=== PATIENT | male | born 1985 | race African-American/Black ===

== ENCOUNTER 2019-01-25 12:06 | Inpatient (IN) | payer OTHER ==
[2019-01-25 14:27] VITALS: BMI 24.9
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
[2019-01-25] MEDS ORDERED: MAG HYDROX/AL HYDROX/SIMETH 30 ML UNIT-DOSE CUP PO PRN (17:44)
[2019-01-25] MEDS ORDERED: ACETAMINOPHEN 325 MG TABLET (FP) PO PRN (17:44)
[2019-01-25] MEDS ORDERED: NICOTINE POLACRILEX 2 MG GUM BUC PRN (17:44)
[2019-01-25] MEDS ORDERED: MENTHOL/PHENOL 1 EACH UD MM PRN (17:44)
[2019-01-25] MEDS ORDERED: MAGNESIUM CITRATE 300 ML BOTTLE PO PRN (17:44)
[2019-01-25] MEDS ORDERED: hydrOXYzine PAMOATE 25 MG CAPSULE (FP) PO PRN (17:44)
[2019-01-25] MEDS ORDERED: chlordiazePOXIDE HCL 25 MG CAPSULE PO PRN (17:44)
[2019-01-25] MEDS ORDERED: BISMUTH SUBSALICYLATE 524 MG/30 ML UD PO PRN (17:44)
[2019-01-25] MEDS ORDERED: MAGNESIUM HYDROX 2400MG/30ML ORAL SUSPENSION 30 ML CUP PO PRN (17:44)
[2019-01-25] MEDS ORDERED: IBUPROFEN 400 MG TABLET (FP) PO PRN (17:44)
[2019-01-25] MEDS ORDERED: ONDANSETRON *ODT* 4 MG TABLET SL PRN (17:44)
[2019-01-25] MEDS ORDERED: guaiFENesin 200 MG/10 ML 10 ML UNIT-DOSE CUPS PO PRN (17:44)
[2019-01-25] MEDS ORDERED: BACITRACIN 0.9 GM PACKET TP ONE (18:00)
[2019-01-25] MEDS: THIAMINE HCL 100 MG TABLET (FP) PO SCH (22:08)
[2019-01-25] MEDS: chlordiazePOXIDE HCL 25 MG CAPSULE PO SCH (22:08)
[2019-01-25] MEDS: MELATONIN 5 MG TABLETS PO PRN (22:09)
[2019-01-26] MEDS: chlordiazePOXIDE HCL 25 MG CAPSULE PO SCH ×4 (05:21→22:02)
[2019-01-26] MEDS: PRENATAL VITAMINS W/ FOLIC ACID TABLET (FP) PO SCH (10:18)
[2019-01-26] MEDS: NICOTINE 14 MG/24 HOURS TOPICAL PATCH TD SCH (10:20)
--- NOTE | 2019-01-26 10:45 | PN ---
S CIWA - CIWA Score Nausea/Vomitin-No Nausea/No Vomiting Muscle Tremors: 2 Anxiety: 2 Agitation: 2 Paroxysmal Sweats: 1-Minimal Palms Moist Orientation: 2-Disoriented Date<2 days Tacttile Disturbances: 0-None Auditory Disturbances: 0-None Visual Disturbances: 0-None Headache: 1-Very Mild CIWA-Ar Total Score: 10 BHS Progress Note (SOAP) Subjective: tremor sweating low energy headaches Objective: 01/26/19 10:45 Vital Signs Temperature 96.8 F L 01/26/19 09:42 Pulse Rate 59 L 01/26/19 09:42 Respiratory Rate 16 01/26/19 09:42 Blood Pressure 120/76 01/26/19 09:42 O2 Sat by Pulse Oximetry (%) lab pending Assessment: 01/26/19 10:46 alcohol withdrawal sx Plan: continue detox
--- NOTE | 2019-01-26 11:29 | CONSULT ---
[facility] Psychiatric Consult - Data Date of interview: 01/26/19 Admission source: [facility] Identifying data: Psychiatry team (Dr Shah + medical students + counselor Percy ) approached the patient at bedside for psychiatric evaluation. Three visits. Patient remains uncooperative after three visits. Interview cannot be done at this time. Will re-consult if request renewed.
[2019-01-26 12:53] LABS: ALBUMIN 3.4 g/dl (3.4-5.0); ALK PHOS 82 U/L (45-117); ANION GAP 7 MMOL/L (8-16); BILIRUBIN,TOTAL 0.6 mg/dL (0.2-1); BLOOD UREA NITROGEN 11 mg/dL (7-18); CALCIUM 8.7 mg/dL (8.5-10.1); CHLORIDE 104 mmol/L (98-107); CO2 30 mmol/L (21-32); CREATININE 1.1 mg/dL (0.55-1.3); GLUCOSE,RANDOM 74 mg/dL (74-106); POTASSIUM 3.4 mmol/L (3.5-5.1); SGOT/AST 31 U/L (15-37); SGPT/ALT 31 U/L (13-61); SODIUM 141 mmol/L (136-145); TOT PROT 6.3 g/dl (6.4-8.2)
[2019-01-26 13:08] LABS: HEMATOCRIT 38.1 % (35.4-49); HEMOGLOBIN 13.1 GM/dL (11.7-16.9); MCH 33.6 pg (25.7-33.7); MCHC 34.3 g/dl (32.0-35.9); MEAN CELL VOLUME 97.9 fl (80-96); MEAN PLT VOLUME 7.1 fl (7.5-11.1); PLATELET COUNT 174 K/MM3 (134-434); RBC 3.89 M/mm3 (4.00-5.60); RDW 14.2 % (11.9-15.9); WHITE BLOOD COUNT 4.9 K/mm3 (4.0-10.0)
--- NOTE | 2019-01-26 13:37 | EKG ---
Test Reason : Blood Pressure : / mmHG Vent. Rate : 079 BPM Atrial Rate : 079 BPM P-R Int : 154 ms QRS Dur : 080 ms QT Int : 368 ms P-R-T Axes : 059 063 053 degrees QTc Int : 421 ms NORMAL SINUS RHYTHM NORMAL ECG NO PREVIOUS ECGS AVAILABLE Confirmed by MD TEODORO, JAGRUTI ([id number]) on 01/26/2019 1:37:14 PM Referred By: Confirmed By:JAGRUTI VALERIO MD
[2019-01-26] MEDS: ACETAMINOPHEN 325 MG TABLET (FP) PO PRN (17:39)
[2019-01-26 18:00] LABS: URINE APPEARANCE TURBID; URINE BILIRUBIN NEGATIVE (<2.0 mg/dL); URINE COLOR AMBER; URINE GLUCOSE (UA) NEGATIVE (NEGATIVE); URINE KETONE NEGATIVE (NEGATIVE); URINE LEUK ESTERASE NEGATIVE (NEGATIVE); URINE NITRITE NEGATIVE (NEGATIVE); URINE PROTEIN NEGATIVE (NEGATIVE); URINE UROBILINOGEN NEGATIVE mg/dL (0.2-1.0)
[2019-01-26] MEDS: BACLOFEN 10 MG TABLET (FP) PO PRN (22:02)
[2019-01-26] MEDS: MELATONIN 5 MG TABLETS PO PRN (22:02)
[2019-01-26] MEDS: THIAMINE HCL 100 MG TABLET (FP) PO SCH (22:02)
[2019-01-27] MEDS: chlordiazePOXIDE HCL 25 MG CAPSULE PO SCH ×3 (06:02→17:52)
--- NOTE | 2019-01-27 10:28 | PN ---
S CIWA - CIWA Score Nausea/Vomitin-No Nausea/No Vomiting Muscle Tremors: 2 Anxiety: 1-Mildly Anxious Agitation: 2 Paroxysmal Sweats: 1-Minimal Palms Moist Orientation: 1-Uncertain about Date Tacttile Disturbances: 0-None Auditory Disturbances: 0-None Visual Disturbances: 0-None Headache: 0-None Present CIWA-Ar Total Score: 7 BHS Progress Note (SOAP) Subjective: tremor sweating irritable anxiety Objective: 01/27/19 10:30 Vital Signs Temperature 96.7 F L 01/27/19 09:01 Pulse Rate 61 01/27/19 09:01 Respiratory Rate 18 01/27/19 09:01 Blood Pressure 125/82 01/27/19 09:01 O2 Sat by Pulse Oximetry (%) Laboratory Last Values WBC 4.9 K/mm3 (4.0-10.0) 01/26/19 07:00 RBC 3.89 M/mm3 (4.00-5.60) L 01/26/19 07:00 Hgb 13.1 GM/dL (11.7-16.9) 01/26/19 07:00 Hct 38.1 % (35.4-49) 01/26/19 07:00 MCV 97.9 fl (80-96) H 01/26/19 07:00 MCH 33.6 pg (25.7-33.7) 01/26/19 07:00 MCHC 34.3 g/dl (32.0-35.9) 01/26/19 07:00 RDW 14.2 % (11.9-15.9) 01/26/19 07:00 Plt Count 174 K/MM3 (134-434) 01/26/19 07:00 MPV 7.1 fl (7.5-11.1) L 01/26/19 07:00 Sodium 141 mmol/L (136-145) 01/26/19 07:00 Potassium 3.4 mmol/L (3.5-5.1) L 01/26/19 07:00 Chloride 104 mmol/L (98-107) 01/26/19 07:00 Carbon Dioxide 30 mmol/L (21-32) 01/26/19 07:00 Anion Gap 7 MMOL/L (8-16) L 01/26/19 07:00 BUN 11 mg/dL (7-18) 01/26/19 07:00 Creatinine 1.1 mg/dL (0.55-1.3) 01/26/19 07:00 Creat Clearance w eGFR > 60 (>60) 01/26/19 07:00 Random Glucose 74 mg/dL (74-106) 01/26/19 07:00 Calcium 8.7 mg/dL (8.5-10.1) 01/26/19 07:00 Total Bilirubin 0.6 mg/dL (0.2-1) 01/26/19 07:00 AST 31 U/L (15-37) 01/26/19 07:00 ALT 31 U/L (13-61) 01/26/19 07:00 Alkaline Phosphatase 82 U/L (45-117) 01/26/19 07:00 Total Protein 6.3 g/dl (6.4-8.2) L 01/26/19 07:00 Albumin 3.4 g/dl (3.4-5.0) 01/26/19 07:00 Urine Color Amanda 01/26/19 15:45 Urine Appearance Turbid 01/26/19 15:45 Urine pH 5.0 (5.0-8.0) 01/26/19 15:45 Ur Specific [place] 1.026 (1.010-1.035) 01/26/19 15:45 Urine Protein Negative (NEGATIVE) 01/26/19 15:45 Urine Glucose (UA) Negative (NEGATIVE) 01/26/19 15:45 Urine Ketones Negative (NEGATIVE) 01/26/19 15:45 Urine Blood Negative (NEGATIVE) 01/26/19 15:45 Urine Nitrite Negative (NEGATIVE) 01/26/19 15:45 Urine Bilirubin Negative (<2.0 mg/dL) 01/26/19 15:45 Urine Urobilinogen Negative mg/dL (0.2-1.0) 01/26/19 15:45 Ur Leukocyte Esterase Negative (NEGATIVE) 01/26/19 15:45 RPR Titer Nonreactive (NONREACTIVE) 01/26/19 07:00 lab noted Assessment: 01/27/19 10:34 alcohol withdrawal sx low K+ Plan: continue detox repeat K+
[2019-01-27] MEDS: NICOTINE 14 MG/24 HOURS TOPICAL PATCH TD SCH (10:58)
[2019-01-27] MEDS: PRENATAL VITAMINS W/ FOLIC ACID TABLET (FP) PO SCH (10:58)
[2019-01-27] MEDS: POTASSIUM CHLORIDE ORAL LIQUID 20 MEQ/15 ML PO SCH ×2 (14:36→15:54)
--- NOTE | 2019-01-27 14:39 | CONSULT ---
[facility] Psychiatric Consult - Data Date of interview: 01/27/19 Admission source: [facility] Identifying data: First admission to [facility] for this 33 y/o AA male, from [place] descent, self-referred for detoxification (alcohol, cannabis). Interviewed on . Patient is single, no children, homeless for past eleven years, unemployed and supported on Public Assistance. Substance Abuse History: Confirmed by the patient in this interview. Details in current [facility] report as follows : Smoking history: Current every day smoker. Have you smoked in the past 12 months: Yes. Aproximately how many cigarettes per day: 10. Hx Chewing Tobacco Use: No. Initiated information on smoking cessation: Yes. 'Breaking Loose' booklet given: 01/25/19. - Substance & Tx. History. Hx Alcohol Use: Yes. Hx Substance Use: Yes. Substance Use Type: Alcohol, Marijuana. Hx Substance Use Treatment: Yes (Last detox at [facility] 09/22/19 -10/22/19.). - Substances Abused. Alcohol. Route: Oral. Frequency: Daily. Amount used: 2.5 - 3 pints liqouor + 1 x six pack beer. Age of first use: 17 (chronic alcoholism 22 yo ). Date of Last Use: 01/25/19. Marijuana/ Hashish. Route: Smoking. Frequency: Daily. Amount used: 3 - 4 joints. Age of first use: 11. Date of Last Use: 01/25/19 Medical History: Patient endorses good general health. Psychiatric History: Patient denies history of psychiatric hospitalizations or OPD care. No prior exposure to psychotropic medications with the exception of librium for detoxification. Mr Ivey denies history of suicide attempts. Physical/Sexual Abuse/Trauma History: Patient denies history of abuse. Additional Comment: Urine Drug Screen Results: THC-Marijuana. Noted. Mental Status Exam - Mental Status Exam Alert and Oriented to: Time, Place, Person Cognitive Function: Good Patient Appearance: Well Groomed Mood: Anxious Affect: Appropriate, Normal Range Patient Behavior: Fatigued, Appropriate, Cooperative Speech Pattern: Clear Voice Loudness: Normal Thought Process: Intact, Goal Oriented Thought Disorder: Not Present Hallucinations: Denies Suicidal Ideation: Denies Homicidal Ideation: Denies Insight/Judgement: Poor Appetite: Good Muscle strength/Tone: Normal Gait/Station: Normal Psychiatric Findings - Problem List ([place] 1, 2,3) (1) Alcohol dependence with withdrawal Current Visit: Yes Status: Acute Qualifiers: Complication of substance-induced condition: uncomplicated Qualified Code(s ): F10.230 - Alcohol dependence with withdrawal, uncomplicated (2) Cannabis dependence Current Visit: Yes Status: Chronic (3) Nicotine dependence Current Visit: Yes Status: Chronic Qualifiers: Nicotine product type: cigarettes - Initial Treatment Plan Initial Treatment Plan: Psychoeducation. Sleep hygiene. Detoxification. Support. Relapse prevention : discussed with the patient. AA meetings. Motivational sessions. Observation.
[2019-01-27] MEDS: THIAMINE HCL 100 MG TABLET (FP) PO SCH (22:02)
[2019-01-27] MEDS: chlordiazePOXIDE HCL 10 MG CAPSULE PO SCH (22:02)
[2019-01-27] MEDS: MELATONIN 5 MG TABLETS PO PRN (22:02)
[2019-01-27] MEDS: BACLOFEN 10 MG TABLET (FP) PO PRN (22:03)
[2019-01-27] MEDS ORDERED: chlordiazePOXIDE HCL 10 MG CAPSULE PO PRN (23:00)
[2019-01-28] MEDS: ACETAMINOPHEN 325 MG TABLET (FP) PO PRN ×2 (01:10→15:29)
[2019-01-28] MEDS: chlordiazePOXIDE HCL 10 MG CAPSULE PO SCH ×3 (05:11→17:28)
[2019-01-28] MEDS: PRENATAL VITAMINS W/ FOLIC ACID TABLET (FP) PO SCH (10:17)
[2019-01-28] MEDS: NICOTINE 14 MG/24 HOURS TOPICAL PATCH TD SCH (10:18)
--- NOTE | 2019-01-28 16:37 | PN ---
BHS Progress Note (SOAP) Subjective: Interrupted Sleep, Sweating, Hot /Cold Sensations, Anxious. Objective: PATIENT A & O X 2 (UNCERTAIN ABOUT CURRENT DAY / DATE). PATIENT OBSERVED AMBULATING ON UNIT. IN NO ACUTE DISTRESS. 01/28/19 16:35 Vital Signs Temperature 96.9 F L 01/28/19 13:51 Pulse Rate 70 01/28/19 13:51 Respiratory Rate 18 01/28/19 13:51 Blood Pressure 117/80 01/28/19 13:51 O2 Sat by Pulse Oximetry (%) Laboratory Tests 01/26/19 01/26/19 01/26/19 07:00 07:00 07:00 WBC 4.9 RBC 3.89 L Hgb 13.1 Hct 38.1 MCV 97.9 H MCH 33.6 MCHC 34.3 RDW 14.2 Plt Count 174 MPV 7.1 L Sodium 141 Potassium 3.4 L Chloride 104 Carbon Dioxide 30 Anion Gap 7 L BUN 11 Creatinine 1.1 Creat Clearance w eGFR > 60 Random Glucose 74 Calcium 8.7 Total Bilirubin 0.6 AST 31 ALT 31 Alkaline Phosphatase 82 Total Protein 6.3 L Albumin 3.4 Urine Color Urine Appearance Urine pH Ur Specific [place] Urine Protein Urine Glucose (UA) Urine Ketones Urine Blood Urine Nitrite Urine Bilirubin Urine Urobilinogen Ur Leukocyte Esterase RPR Titer Nonreactive 01/26/19 01/28/19 15:45 07:00 WBC RBC Hgb Hct MCV MCH MCHC RDW Plt Count MPV Sodium Potassium 3.8 Chloride Carbon Dioxide Anion Gap BUN Creatinine Creat Clearance w eGFR Random Glucose Calcium Total Bilirubin AST ALT Alkaline Phosphatase Total Protein Albumin Urine Color Amanda Urine Appearance Turbid Urine pH 5.0 Ur Specific [place] 1.026 Urine Protein Negative Urine Glucose (UA) Negative Urine Ketones Negative Urine Blood Negative Urine Nitrite Negative Urine Bilirubin Negative Urine Urobilinogen Negative Ur Leukocyte Esterase Negative RPR Titer LABS NOTED. RESULT OF REPEAT K LEVEL NOTED. K LEVEL NOW NOTED TO BE WITHIN NORMAL RANGE. 01/28/19 16:37 Assessment: 01/28/19 16:35 WITHDRAWAL SYMPTOMS. Plan: CONTINUE DETOX.
[2019-01-28] MEDS: THIAMINE HCL 100 MG TABLET (FP) PO SCH (22:00)
[2019-01-28] MEDS: BACLOFEN 10 MG TABLET (FP) PO PRN (22:00)
[2019-01-28] MEDS: MELATONIN 5 MG TABLETS PO PRN (22:01)
[2019-01-28] MEDS ORDERED: chlordiazePOXIDE HCL 10 MG CAPSULE PO SCH (23:00)
[2019-01-29 09:03] VITALS: BP 128/80; PULSE 80; TEMP 99.1
--- NOTE | 2019-01-29 18:37 | PN ---
BHS Progress Note (SOAP) Subjective: Patient denies current Withdrawal / Detox symptoms and reports that he feels well overall. Objective: PATIENT A & O X 3, OBSERVED AMBULATING ON UNIT. IN NO ACUTE DISTRESS. 01/29/19 18:35 Vital Signs Temperature 99.1 F 01/29/19 09:02 Pulse Rate 80 01/29/19 09:02 Respiratory Rate 13 01/29/19 09:02 Blood Pressure 128/80 01/29/19 09:02 O2 Sat by Pulse Oximetry (%) Laboratory Tests 01/26/19 01/26/19 01/26/19 07:00 07:00 07:00 WBC 4.9 RBC 3.89 L Hgb 13.1 Hct 38.1 MCV 97.9 H MCH 33.6 MCHC 34.3 RDW 14.2 Plt Count 174 MPV 7.1 L Sodium 141 Potassium 3.4 L Chloride 104 Carbon Dioxide 30 Anion Gap 7 L BUN 11 Creatinine 1.1 Creat Clearance w eGFR > 60 Random Glucose 74 Calcium 8.7 Total Bilirubin 0.6 AST 31 ALT 31 Alkaline Phosphatase 82 Total Protein 6.3 L Albumin 3.4 Urine Color Urine Appearance Urine pH Ur Specific [place] Urine Protein Urine Glucose (UA) Urine Ketones Urine Blood Urine Nitrite Urine Bilirubin Urine Urobilinogen Ur Leukocyte Esterase RPR Titer Nonreactive 01/26/19 01/28/19 15:45 07:00 WBC RBC Hgb Hct MCV MCH MCHC RDW Plt Count MPV Sodium Potassium 3.8 Chloride Carbon Dioxide Anion Gap BUN Creatinine Creat Clearance w eGFR Random Glucose Calcium Total Bilirubin AST ALT Alkaline Phosphatase Total Protein Albumin Urine Color Amanda Urine Appearance Turbid Urine pH 5.0 Ur Specific [place] 1.026 Urine Protein Negative Urine Glucose (UA) Negative Urine Ketones Negative Urine Blood Negative Urine Nitrite Negative Urine Bilirubin Negative Urine Urobilinogen Negative Ur Leukocyte Esterase Negative RPR Titer LABS NOTED. Assessment: 01/29/19 18:36 COMPLETION OF DETOX REGIMEN. Plan: PATIENT TO BE DISCHARGED FROM DETOX UNIT TODAY.
--- NOTE | 2019-01-29 18:38 | DS ---
[facility] Detox Discharge Summary Admission Date: 01/25/19 Discharge Date: 01/29/19 - History Present History: Alcohol Dependence, Cannabis Dependence Additional Comments: PATIENT DENIES CURRENT WITHDRAWAL / DETOX SYMPTOMS AND REPORTS THAT HE FEELS WELL OVERALL. PATIENT WILL RETURN TO [facility] ([place], [place]) FOR AFTERCARE. PATIENT ALSO REFERRED TO [facility] ([place], [place]) FOR AFTERCARE. PATIENT WAS DISCHARGED FROM DETOX UNIT IN STABLE MEDICAL CONDITION. Pertinent Past History: Nicotine Dependence. - Physical Exam Results Vital Signs: Vital Signs Temperature 99.1 F 01/29/19 09:02 Pulse Rate 80 01/29/19 09:02 Respiratory Rate 13 01/29/19 09:02 Blood Pressure 128/80 01/29/19 09:02 O2 Sat by Pulse Oximetry (%) Pertinent Admission Physical Exam Findings: WITHDRAWAL SYMPTOMS. Laboratory Tests 01/26/19 01/26/19 01/26/19 07:00 07:00 07:00 WBC 4.9 RBC 3.89 L Hgb 13.1 Hct 38.1 MCV 97.9 H MCH 33.6 MCHC 34.3 RDW 14.2 Plt Count 174 MPV 7.1 L Sodium 141 Potassium 3.4 L Chloride 104 Carbon Dioxide 30 Anion Gap 7 L BUN 11 Creatinine 1.1 Creat Clearance w eGFR > 60 Random Glucose 74 Calcium 8.7 Total Bilirubin 0.6 AST 31 ALT 31 Alkaline Phosphatase 82 Total Protein 6.3 L Albumin 3.4 Urine Color Urine Appearance Urine pH Ur Specific [place] Urine Protein Urine Glucose (UA) Urine Ketones Urine Blood Urine Nitrite Urine Bilirubin Urine Urobilinogen Ur Leukocyte Esterase RPR Titer Nonreactive 01/26/19 01/28/19 15:45 07:00 WBC RBC Hgb Hct MCV MCH MCHC RDW Plt Count MPV Sodium Potassium 3.8 Chloride Carbon Dioxide Anion Gap BUN Creatinine Creat Clearance w eGFR Random Glucose Calcium Total Bilirubin AST ALT Alkaline Phosphatase Total Protein Albumin Urine Color Amanda Urine Appearance Turbid Urine pH 5.0 Ur Specific [place] 1.026 Urine Protein Negative Urine Glucose (UA) Negative Urine Ketones Negative Urine Blood Negative Urine Nitrite Negative Urine Bilirubin Negative Urine Urobilinogen Negative Ur Leukocyte Esterase Negative RPR Titer LABS NOTED. - Treatment Hospital Course: Detox Protocol Followed, Detoxed Safely, Responded well, Discharged Condition Good Patient has Accepted a Rehab Referral to: PATIENT WILL RETURN TO [facility] ([place], [place]) - Medication Discharge Medications: Ambulatory Orders NK [No Known Home Medication] 01/25/19 - Diagnosis (1) Alcohol dependence with withdrawal Status: Acute Qualifiers: Complication of substance-induced condition: uncomplicated Qualified Code(s ): F10.230 - Alcohol dependence with withdrawal, uncomplicated (2) Cannabis dependence Status: Chronic (3) Nicotine dependence Status: Chronic Qualifiers: Nicotine product type: cigarettes Substance use status: uncomplicated Qualified Code(s): F17.210 - Nicotine dependence, cigarettes, uncomplicated - AMA Did Patient Leave Against Medical Advice: No
== END 2019-01-29 09:06 | disposition home or self-care (01) | DRG 775 ==
LOC: YASAS 12:06 → Y3N 19:11
PROVIDERS: ADMIT Surgery; ATTEND Surgery
PROC: HZ2ZZZZ Detoxification Services for Substance Abuse Treatment (ICD-10-PCS; principal; 2019-01-25)
DX: F10.230 Alcohol dependence with withdrawal, uncomplicated (principal); F12.20 Cannabis dependence, uncomplicated; F17.210 Nicotine dependence, cigarettes, uncomplicated; E87.6 Hypokalemia; Z59.0 Homelessness
CPT/HCPCS: 36415; 80053; 81003; 84132; 85027; 86593; 93005; 93010; J0475